=== PATIENT | female | born 1985 | race Hispanic/Latino ===

== ENCOUNTER 2018-01-06 11:29 | Emergency (ER) | payer SELFPAY ==
[2018-01-06 12:00] LABS: #Basophils 0.1 thou/uL (0.0-0.2); #Eosinphils 0.2 thou/uL (0.0-0.7); #Lymphocytes 1.7 thou/uL (1.20-3.40); #Monocytes 0.3 thou/uL (0.11-0.59); #Neutrophils 4.1 thou/uL (1.40-6.50); %Basophils 1.1 % (0.0-1.0); %Eosinophils 3.2 % (0.0-10.0); %Lymphocytes 26.4 % (21.0-51.0); %Monocytes 4.4 % (0.0-10.0); Hemoglobin 14.4 g/dL (12.0-16.0); Mean Corpuscular Volume 85.2 fL (78.0-98.0); Mean Platelet Volume 8.2 fL (7.4-10.4); Platelet Count 253 thou/uL (130-400); RBC Distribution Width 13.8 % (11.5-14.5); Red Blood Cell (RBC) Count 4.97 mill/uL (4.20-5.40); White Blood Cell (WBC) Count 6.2 thou/uL (4.8-10.8)
[2018-01-06 12:21] LABS: ALT (SGPT) 14 U/L (8-55); AST (SGOT) 14 U/L (5-34); Albumin 4.1 g/dL (3.5-5.0); Alkaline Phosphatase 88 U/L (40-150); Anion Gap 13 mmol/L (10-20); BUN (Urea Nitrogen) 9 mg/dL (7.0-18.7); Bilirubin, Total 0.4 mg/dL (0.2-1.2); Calc. Creatinine Clearance 0 mL/min (70-130); Calcium 9.1 mg/dL (7.8-10.44); Carbon Dioxide 22 mmol/L (22-29); Chloride 106 mmol/L (98-107); Estimated GFR-MDRD 87; Globulin 3.1 g/dL (2.4-3.5); Glucose 99 mg/dL (70-105); Potassium 3.6 mmol/L (3.5-5.1); Protein, Total 7.2 g/dL (6.0-8.3); Sodium 137 mmol/L (136-145)
[2018-01-06 12:53] LABS: Bilirubin Negative (Negative); Blood, Urine Large (Negative); Clarity CLEAR (Clear); Glucose, Urine (Dipstick) Negative (Negative); Leukocyte Trace (Negative); Nitrite Negative (Negative); Protein, Urine (Dipstick) Negative (Neg-Trace); Specific Gravity, Urine 1.011 (1.002-1.036); pH, Urine 6.5 (5.0-9.0)
[2018-01-06 12:56] LABS: Bacteria/HPF None Seen HPF (None Seen); Hyaline Casts/LPF 0-3 HYALINE CAST LPF (0-3 Hyaline); Squamous Epithelial 0-3 HPF (0-3); WBC/HPF 0-3 HPF (0-3)
[2018-01-06 12:57] LABS: Yeast-AUWi Flag 64.6 (0-25.0)
[2018-01-06 13:14] LABS: Yeast-All Forms None Seen HPF (None Seen)
--- NOTE | 2018-01-06 14:21 | ULT ---
PELVIC ULTRASOUND: HISTORY: A 32-year-old female with a positive serum beta hCG of 8895. Spotting x2 weeks, which has increased to a brown discharge. Previous ultrasound did confirm but was unable to obtain heart tones . COMPARISON: None. TECHNIQUE: Transabdominal and endovaginal imaging of the gravid uterus is performed. FINDINGS: A uterus is identified, measuring 11.7 x 5.7 x 8.2 cm. The endometrium appears to be thickened, sylwia uring 3.6 cm. Overall echotexture of the endometrium is heterogeneous. Within the endometrium, ther e appears to be anechoic focus, which may represent a gestational sac. No sonographic evidence of a yolk sac or pole. There is no free fluid. The left ovary has a normal echotexture, measuring 3 x 2.1 3 cm. The right ovary has a normal echote xture, measuring 3 x 1.7 x 2.2 cm. OVARIAN DOPPLER: Vascular flow to both ovaries. IMPRESSION: Anechoic focus in the endometrium. There is no evidence of a yolk sac of pole. Differential c onsiderations include an empty gestational sac/pseudo gestational sac from a sonographically occult e ctopic versus an early intrauterine gestation versus a missed spontaneous . Follow -up ultrasound and serial beta hCGs is recommended. POS: CITLALI
== END 2018-01-06 15:19 | disposition home or self-care (01) ==
LOC: ERS 11:29
DX: O03.9 Complete or unspecified spontaneous abortion without complication (principal); N39.0 Urinary tract infection, site not specified
CPT/HCPCS: 36415; 76856; 80053; 81003; 81015; 84702; 85025; 86850; 86900; 86901; 87480; 87491; 87510; 87591; 87660

== ENCOUNTER 2018-09-21 13:15 | Outpatient (CLI) | payer MEDICAID ==
--- NOTE | 2018-09-21 15:07 | ULT ---
OB ULTRASOUND: 09/21/2018 PROVIDED CLINICAL HISTORY: Assess anatomy. FINDINGS: A single live intrauterine gestation is documented in a vertex presentation, with a heart rate of 140 beats per minute. The placenta is anteriorly located without evidence for previa. Amniotic fluid i ndex is 18.3. Cervical length is adequate. The anatomic survey reveals a normal appearance to the head, heart, stomach, kidneys, umbilical cord, cord insertion, bladder, lips, nose, extremi ties, and spine. The estimated gestational age, based on today's ultrasound, is 21 weeks 5 days. The estimated weight is 461 g, plus or minus 67 g. BIOMETRY: BPD: 5.09 cm (21 weeks 3 days). HEAD CIRCUMFERENCE: 18.89 cm (21 weeks 2 days). ABDOMINAL CIRCUMFERENCE: 17.5 cm (22 weeks 3 days). FEMUR LENGTH: 3.63 cm (21 weeks 4 days). IMPRESSION: Single live intrauterine gestation, at 21 weeks 5 days by ultrasound. POS: OFF
== END 2018-09-21 13:16 | disposition home or self-care (01) ==
LOC: BICULT 13:15
PROVIDERS: ATTEND Family Medicine
DX: O09.522 Supervision of elderly multigravida, second trimester (principal); Z3A.21 21 weeks gestation of pregnancy
CPT/HCPCS: 76805

== ENCOUNTER 2018-11-25 16:50 | Day surgery (SDC) | payer MEDICAID ==
[2018-11-25 17:18] VITALS: BP 110/66; TEMP 98.6
[2018-11-25 17:19] VITALS: BMI 33.0
[2018-11-25] MEDS ORDERED: hydrALAZINE 20 MG/ML VIAL SLOW IVP PRN (17:45)
[2018-11-25 18:17] LABS: Amnisure Internal Control QC ACCEPTABLE (ACCEPTABLE); Amnisure Test No Membranes Rupture (No Rupture)
--- NOTE | 2018-11-25 18:52 | PRG ---
DATE OF SERVICE: 11/25/2018 PRIMARY OB: [facility] in [place]. CHIEF COMPLAINT: Pelvic pressure and a reported dilated cervix. HISTORY OF PRESENT ILLNESS: The patient is a 33-year-old, G9, P6 female with an intrauterine at 30 weeks gestation, who is presenting from clinic today with concerns of pelvic pressure and a reported dilated cervix of 2 cm. The patient reports that she has been feeling pressure in the last day or so. She has felt about 4 or 5 contractions throughout the whole day, but primarily feels this pelvic pressure that is given her concern. She reports that the pressure pain is more present with activity and movement. She does have 6 other children, who have all been delivered at term and uncomplicated. The patient denies vaginal bleeding, though she does state she has been having a little bit of wetness. The patient denies fever, reports cough. Denies chest pain, shortness of breath, nausea, vomiting, diarrhea, constipation, new rashes, hip problems, knee problems, muscle weakness, urinary urgency or frequency. PAST MEDICAL HISTORY: Negative. PAST SURGICAL HISTORY: Negative. ALLERGIES: NO KNOWN DRUG ALLERGIES. MEDICATIONS: vitamins. SOCIAL HISTORY: Denies drug, alcohol, or tobacco use. OB LABS: Blood type is O positive. Antibody screen is negative. She is rubella immune. Hepatitis B surface antigen is negative. RPR is nonreactive. HIV is negative. GC chlamydia is negative. REVIEW OF SYSTEMS: Per HPI. PHYSICAL EXAMINATION: VITAL SIGNS: Blood pressure is 110/66, heart rate of 74, respiratory rate of 18, saturating 97% on room air, temperature 98.6. GENERAL: She appears to be in no acute distress. She is alert, oriented, cooperative, and pleasant to interact with. HEAD: Normocephalic and atraumatic. LUNGS: Clear to auscultation bilaterally. HEART: Regular rate and rhythm. ABDOMEN: Gravid and soft. She does have a little bit tenderness with deviation of the uterus in either direction. She does feel less pressure in her pelvis with support of the uterus. EXTREMITIES: Nontender, nonedematous. The vulva is without masses, lesions, or erythema. Vagina is moist. Cervix is closed and thick with an open external os consistent with grand multiparous individual. heart tracing for pelvic pressure shows the fetus in baseline of 130s with moderate long-term variability, positive 15 x 15 accelerations, no decelerations. The patient does have some irritability seen, but not felt. AmniSure test was collected and is still pending. ASSESSMENT AND PLAN: The patient is a 33-year-old grand multiparous female presenting to Labor and Delivery with pelvic pressure and a dilated external os, but closed cervix. The patient is pending AmniSure test. However, there is no evidence of labor and the patient has reactive NST and category 1 tracing. When the AmniSure test returns, if negative the patient will be discharged home. The patient has been counseled to follow up with her primary OB as scheduled. Job ID: [id number]
== END 2018-11-25 18:28 | disposition home or self-care (01) ==
LOC: L&D/OP 16:50
PROVIDERS: ATTEND Obstetrics & Gynecology
DX: O47.03 False labor before 37 completed weeks of gestation, third trimester (principal); Z3A.30 30 weeks gestation of pregnancy
CPT/HCPCS: 59025; 84112; 99283

== ENCOUNTER 2019-01-16 21:21 | Inpatient (IN) | payer MEDICAID, SELFPAY ==
[~2019-01-16 21:21] MED LIST: Bupivacaine/Epinephrine 0.25% 30 ML VIAL ONE
[2019-01-16 21:49] VITALS: BMI 33.5
[2019-01-16 22:25] LABS: Amnisure Test No Membranes Rupture (No Rupture)
[2019-01-16 22:26] LABS: Amnisure Internal Control QC ACCEPTABLE (ACCEPTABLE)
[2019-01-16] MEDS ORDERED: Meperidine HCl/PF 25 MG/ML VIAL IM/IV PRN (22:56)
[2019-01-16] MEDS ORDERED: Butorphanol Tartrate 1 MG/ML VIAL SLOW IVP PRN (22:56)
[2019-01-16] MEDS ORDERED: Zolpidem Tartrate 5 MG TAB PO PRN (22:56)
[2019-01-16] MEDS ORDERED: NS / Oxytocin 40 units/1000ml 1,000 ML IV PRN (22:56)
[2019-01-16] MEDS ORDERED: Lidocaine 1% (PF) 30 ML VIAL SC PRN (22:56)
[2019-01-16] MEDS ORDERED: HYDROcodone/Acetaminophen 5/325 mg Tablet PO PRN ×2 (22:56)
[2019-01-16] MEDS ORDERED: Acetaminophen 500 MG TAB PO PRN (22:56)
[2019-01-16] MEDS ORDERED: Ibuprofen 800 MG TAB PO PRN (22:56)
[2019-01-16] MEDS ORDERED: Ondansetron PF 4 MG/2 ML Vial IVP PRN (22:56)
[2019-01-16] MEDS ORDERED: Promethazine HCl 25 MG/ML VIAL IM PRN (22:56)
[2019-01-16] MEDS ORDERED: NS w/ Oxytocin 10 units 500 ML IV SCH (23:00)
[2019-01-16] MEDS ORDERED: Lactated Ringer's 1,000 ML IV SCH (23:00)
[2019-01-16 23:56] LABS: Hemoglobin 11.1 g/dL (12.0-16.0); Mean Corpuscular HGB CONC 34.2 g/dL (32.0-36.0); Mean Corpuscular Hemoglobin 27.9 pg (27.0-31.0); Mean Corpuscular Volume 81.5 fL (78.0-98.0); Mean Platelet Volume 9.4 fL (7.4-10.4); Platelet Count 213 thou/uL (130-400); Red Blood Cell (RBC) Count 3.99 mill/uL (4.20-5.40); White Blood Cell (WBC) Count 6.4 thou/uL (4.8-10.8)
[2019-01-17 00:37] LABS: Syphilis Antibody Nonreactive (Nonreactive); Syphilis Antibody Index 0.05 S/CO (<1.00 Non-Reactive)
[2019-01-17 00:37] LABS: HBSAg Index 0.21 S/CO (0-0.99); Hep B Surf Ag Non-Reactive S/CO (NonReactive)
[2019-01-17] MEDS ORDERED: Fentanyl 4 mcg/Bup 0.1% Cadd 100 ML ONE ×2 (01:03→09:58)
[2019-01-17] MEDS ORDERED: Ondansetron PF 4 MG/2 ML Vial IVP PRN ×2 (01:50→14:13)
[2019-01-17] MEDS ORDERED: Acetaminophen 325 MG TAB PO PRN (01:50)
[2019-01-17] MEDS ORDERED: diphenhydrAMINE 50 MG/ML VIAL IVP PRN (01:50)
[2019-01-17] MEDS ORDERED: Promethazine HCl 25 MG/ML VIAL IM PRN ×2 (01:50→14:13)
[2019-01-17] MEDS ORDERED: ePHEDrine/0.9% NaCl/PF SYRINGE 50 mg/10 ml SLOW IVP PRN (01:50)
[2019-01-17] MEDS ORDERED: Naloxone HCl 0.4 mg/ml Vial IVP PRN ×2 (01:50)
[2019-01-17] MEDS ORDERED: Lactated Ringer's 500 ML IV PRN (01:50)
[2019-01-17] MEDS ORDERED: Communication Order-Pharmacy FS SCH (02:00)
[2019-01-17] MEDS: Fentanyl 4 mcg/Bupivacaine 0.1% Cassette 100 ML EPIDURAL SCH ×2 (02:04→10:02)
[2019-01-17] MEDS: Lactated Ringer's 1,000 ML IV SCH ×2 (02:19→10:35)
[2019-01-17] MEDS ORDERED: Methylergonovine 0.2 MG/ML VIAL ONE (12:32)
[2019-01-17] MEDS ORDERED: Bisacodyl 10 MG SUPP PR PRN (14:13)
[2019-01-17] MEDS ORDERED: HYDROcodone/Acetaminophen 5/325 mg Tablet PO PRN ×2 (14:13)
[2019-01-17] MEDS ORDERED: diphenhydrAMINE 25 MG CAP PO PRN (14:13)
[2019-01-17] MEDS ORDERED: NS / Oxytocin 40 units/1000ml 1,000 ML IV SCH (14:13)
[2019-01-17] MEDS ORDERED: hydrALAZINE 20 MG/ML VIAL SLOW IVP PRN (14:13)
[2019-01-17] MEDS ORDERED: Lanolin Ointment 7 GM TUBE TOP PRN (14:13)
[2019-01-17] MEDS ORDERED: Milk Of Magnesia 30 ML UDCUP PO PRN (14:13)
[2019-01-17] MEDS ORDERED: NS / Oxytocin 40 units/1000ml 1,000 ML ONE (14:17)
[2019-01-17] MEDS: Ibuprofen 800 MG TAB PO SCH ×2 (15:37→22:43)
[2019-01-17] MEDS: Ferrous Sulfate 325 MG TAB PO SCH (15:47)
[2019-01-17] MEDS: Docusate Calcium (SURFAK) 240 MG CAP PO SCH (20:37)
[2019-01-18] MEDS: Ibuprofen 800 MG TAB PO SCH ×3 (06:10→21:32)
[2019-01-18 06:14] LABS: Hemoglobin 10.7 g/dL (12.0-16.0); Mean Corpuscular Hemoglobin 27.4 pg (27.0-31.0); Mean Corpuscular Volume 83.1 fL (78.0-98.0); Mean Platelet Volume 9.4 fL (7.4-10.4); Platelet Count 142 thou/uL (130-400); RBC Distribution Width 13.1 % (11.5-14.5); Red Blood Cell (RBC) Count 3.89 mill/uL (4.20-5.40); White Blood Cell (WBC) Count 8.7 thou/uL (4.8-10.8)
[2019-01-18] MEDS: Ferrous Sulfate 325 MG TAB PO SCH ×2 (08:05→16:09)
[2019-01-18] MEDS ORDERED: Adacel (T-DAP) 0.5 ML SYRINGE IM ONE (09:00)
[2019-01-18] MEDS: Prenatal Vitamin 1 TAB PO SCH (10:07)
[2019-01-18] MEDS: Docusate Calcium (SURFAK) 240 MG CAP PO SCH ×2 (10:07→21:32)
[2019-01-19] MEDS: Ibuprofen 800 MG TAB PO SCH ×2 (05:01→14:00)
[2019-01-19 08:40] VITALS: BP 107/58; TEMP 98.7
[2019-01-19] MEDS: Ferrous Sulfate 325 MG TAB PO SCH ×2 (09:38→17:32)
[2019-01-19] MEDS: Docusate Calcium (SURFAK) 240 MG CAP PO SCH (09:38)
[2019-01-19] MEDS: Prenatal Vitamin 1 TAB PO SCH (09:38)
== END 2019-01-19 17:50 | disposition home or self-care (01) | DRG 807 ==
LOC: L&D/OP 21:21 → L&D 23:12 → 3SW 01-17 14:44
PROVIDERS: ADMIT Family Medicine; ATTEND Family Medicine
PROC: 10E0XZZ Delivery of Products of Conception, External Approach (ICD-10-PCS; principal; 2019-01-17)
DX: O69.81X0 Labor and delivery complicated by cord around neck, without compression, not applicable or unspecified (principal); Z37.0 Single live birth; Z3A.37 37 weeks gestation of pregnancy
CPT/HCPCS: 36415; 51702; 84112; 85027; 86780; 86850; 86900; 86901; 87340; 99285; J2210; J2590

== ENCOUNTER 2020-04-15 18:06 | Emergency (ER) | payer MEDICAID, SELFPAY ==
[~2020-04-15 18:06] MED LIST changes: -Bupivacaine/Epinephrine 0.25% 30 ML VIAL ONE; +Iopamidol-370 76% 500 ML 1 ML ONE
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
[2020-04-15] MEDS ORDERED: Ondansetron PF 4 MG/2 ML Vial ONE (18:51)
[2020-04-15] MEDS ORDERED: Morphine 4 MG/ML VIAL ONE (18:51)
[2020-04-15 19:02] LABS: #Eosinphils 0.1 thou/uL (0.0-0.7); #Lymphocytes 1.5 thou/uL (1.20-3.40); #Monocytes 0.5 thou/uL (0.11-0.59); #Neutrophils 4.3 thou/uL (1.40-6.50); %Basophils 0.7 % (0.0-1.0); %Eosinophils 1.9 % (0.0-10.0); %Monocytes 8.3 % (0.0-10.0); %Neutrophils 66.2 % (42.0-75.0); Hemoglobin 12.3 g/dL (12.0-16.0); Mean Corpuscular HGB CONC 33.6 g/dL (32.0-36.0); Mean Corpuscular Volume 80.5 fL (78.0-98.0); Platelet Count 254 thou/uL (130-400); RBC Distribution Width 14.2 % (11.5-14.5); Red Blood Cell (RBC) Count 4.53 mill/uL (4.20-5.40); White Blood Cell (WBC) Count 6.5 thou/uL (4.8-10.8)
[2020-04-15 19:23] LABS: ALT (SGPT) 9 U/L (8-55); AST (SGOT) 12 U/L (5-34); Albumin 3.6 g/dL (3.5-5.0); Alkaline Phosphatase 77 U/L (40-110); Anion Gap 12 mmol/L (10-20); BUN (Urea Nitrogen) 12 mg/dL (7.0-18.7); Bilirubin, Total Less than 0.2 mg/dL (0.2-1.2); Calc. Creatinine Clearance 0 mL/min (70-130); Calcium 8.9 mg/dL (7.8-10.44); Carbon Dioxide 20 mmol/L (22-29); Chloride 108 mmol/L (98-107); Estimated GFR-MDRD Greater than 90; Globulin 3.3 g/dL (2.4-3.5); Glucose 104 mg/dL (70-105); Potassium 3.4 mmol/L (3.5-5.1); Protein, Total 6.9 g/dL (6.0-8.3); Sodium 137 mmol/L (136-145)
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
== END 2020-04-15 20:32 | disposition home or self-care (01) ==
LOC: ERS 18:06
DX: O9A.211 Injury, poisoning and certain other consequences of external causes complicating pregnancy, first trimester (principal); S30.1XXA Contusion of abdominal wall, initial encounter; Z3A.11 11 weeks gestation of pregnancy; M25.552 Pain in left hip; V89.2XXA Person injured in unspecified motor-vehicle accident, traffic, initial encounter
CPT/HCPCS: 36415; 70450; 71045; 72125; 74177; 80053; 84702; 85025; 93005; 96374; 96375; J2270; J2405; Q9967